=== PATIENT | female | born 1975 | race Two or more races ===

== ENCOUNTER 2020-05-26 23:50 | Emergency (ER) | payer OTHER ==
[~2020-05-26] VITALS: Ht 154.9 cm; Wt 62.6 kg
[2020-05-27 00:01] VITALS: Ht 154.9 cm; Wt 62.6 kg
[2020-05-27] MEDS ORDERED: ULTRAM50 MG PO (01:39)
[2020-05-27 02:41] VITALS: BP 129/79
== END 2020-05-27 02:41 | disposition home or self-care (01) ==
LOC: ED 23:50
DX: S29.019A Strain of muscle and tendon of unspecified wall of thorax, initial encounter (principal); X58.XXXA Exposure to other specified factors, initial encounter; Y93.89 Activity, other specified; Y92.89 Other specified places as the place of occurrence of the external cause; Y99.8 Other external cause status
CPT/HCPCS: 72072; J1885